=== PATIENT | female | born 1950 | race Caucasian/White ===

== ENCOUNTER → 2019-05-18 | Outpatient (CLI) | payer MEDICARE ==
[2019-05-18 18:41] LABS: ALBUMIN 4.3 GM/DL (3.2-5.2); ALT/SGPT 33 U/L (12-78); BILIRUBIN,TOTAL 0.3 MG/DL (0.2-1.0); BLOOD UREA NITROGEN 18 MG/DL (7-18); CALCIUM LEVEL 9.4 MG/DL (8.8-10.2); CARBON DIOXIDE LEVEL 26 MEQ/L (21-32); CHLORIDE LEVEL 107 MEQ/L (98-107); CREATININE FOR GFR 0.72 MG/DL (0.55-1.30); FREE T4 0.72 NG/DL (0.76-1.46); GLOMERULAR FILTRATION RATE > 60.0 (>45); GLUCOSE, FASTING 82 MG/DL (70-100); MAGNESIUM LEVEL 2.4 MG/DL (1.8-2.4); POTASSIUM SERUM 4.1 MEQ/L (3.5-5.1); SODIUM LEVEL 139 MEQ/L (136-145); TOTAL PROTEIN 7.9 GM/DL (6.4-8.2)
[2019-05-18 18:57] LABS: BASO # 0.1 10^3/uL (0.0-0.2); BASO % 0.6 % (0.0-1.0); EOS # 0.1 10^3/uL (0.0-0.50); EOS % 1.4 % (0.0-3.0); HEMATOCRIT 42.2 % (36.0-47.0); HEMOGLOBIN 13.8 g/dl (12.0-15.5); LYMPH # 2.4 10^3/uL (1.5-4.5); LYMPH % 29.9 % (24.0-44.0); MEAN CORPUSCULAR HEMOGLOBIN 30.1 pg (27.0-33.0); MEAN CORPUSCULAR HGB CONC 32.7 g/dl (32.0-36.5); MEAN CORPUSCULAR VOLUME 91.9 fl (80.0-96.0); MONO # 0.5 10^3/uL (0.0-0.8); MONO % 6.7 % (0.0-5.0); NEUTROPHILS # 4.9 10^3/uL (1.8-7.7); PLATELET COUNT, AUTOMATED 255 10^3/uL (150-450); RED BLOOD COUNT 4.59 10^6/uL (4.00-5.40); WHITE BLOOD COUNT 8.1 10^3/uL (4.0-10.0)
== END ==
LOC: M SMT 15:35
PROVIDERS: ATTEND Physician Assistant
DX: R55 Syncope and collapse (principal)

== ENCOUNTER 2019-06-16 11:56 | Day surgery (SDC) | payer MEDICARE ==
[~2019-06-16] VITALS: Ht 157.5 cm; Wt 62.6 kg
[~2019-06-16 11:56] MED LIST: LIDOCAINE 1% MDV 20ML VIAL SQ PRN; LR 1,000 ML IV ONE; [UNRECOGNIZED DRUG - CODE] PO; ceFAZolin SOD 1 GM in D5W MINI-BAG PLUS 50 ML IV ONE; thyroid support PO
[2019-06-16] MEDS ORDERED: LIDOCAINE 1% SDV INJ 30 ML VIAL As Ordered ONE (12:14)
[2019-06-16] MEDS ORDERED: ONDANSETRON 4MG/2ML VIAL (J2405) As Ordered ONE (12:47)
[2019-06-16] MEDS ORDERED: MIDAZOLAM INJ 2 MG/2 ML VIAL (J2250) As Ordered ONE (12:47)
[2019-06-16] MEDS ORDERED: LIDOCAINE 2% INJ 100 MG/5 ML SDV (FOR ANES.) As Ordered ONE (12:47)
[2019-06-16] MEDS ORDERED: fentaNYL 100 MCG/2 ML INJECTION (J3010) As Ordered ONE (12:47)
[2019-06-16] MEDS ORDERED: PROPOFOL 200 MG/20 ML VIAL As Ordered ONE ×2 (12:47→14:04)
[2019-06-16] MEDS ORDERED: ePHEDrine SULFATE 25 MG/5 ML(5MG/ML) SYRINGE As Ordered ONE (13:44)
[2019-06-16] MEDS ORDERED: KETOROLAC 60 MG/2 ML VIAL (J1885) As Ordered ONE (13:50)
[2019-06-16] MEDS ORDERED: dexameTHASONE 4 MG/ML 1ML VIAL (J1100) As Ordered ONE (14:02)
[2019-06-16] MEDS ORDERED: METOCLOPRAMIDE INJ 10MG/2ML VIAL (J2765) As Ordered ONE (14:02)
[2019-06-16 14:40] VITALS: BP 94/44
[2019-06-16] MEDS ORDERED: fentaNYL 100 MCG/2 ML INJECTION (J3010) IV PRN (14:45)
[2019-06-16] MEDS ORDERED: oxyCODONE 5MG TAB PO PRN (14:45)
[2019-06-16] MEDS ORDERED: ONDANSETRON 4MG/2ML VIAL (J2405) IV PRN (14:45)
[2019-06-16] MEDS ORDERED: LR 1,000 ML IV SCH (14:45)
--- NOTE | 2019-06-16 15:01 | RO ---
DATE OF PROCEDURE: 06/16/2019 PREOPERATIVE DIAGNOSIS: Unexplained syncope. POSTOPERATIVE DIAGNOSIS: Unexplained syncope. PROCEDURE PERFORMED: Implantation of [employer] implantable loop recorder. SURGEON: Leif Sawyer MD [employer]PARTMENT [employer] GRE[employer]ER: None. ANESTHESIA: Lidocaine 1% local/monitored anesthetic care. FINDINGS: Unexplained syncope. No specimens. Estimated blood loss than 1 mL. No blood products replaced. No drains. No complications. PROCEDURE DESCRIPTION: The patient was prepped and draped over the sternum and left anterior chest. An incision approximately 1 cm in length was made with a #15 scalpel blade through the skin approximately left 4th interspace about 1 inch lateral to the left parasternal border. The guide on the insertion tool was then placed into the incision and advanced parallel to anterior rib cage in a left lateral-caudal direction. The insertion tools were rotated 180 degrees and then the plunger was used to advance the loop recorder into the tissue. The plunger was then removed, and then insertion tool was removed leaving the loop recorder behind. A single #2-0 Vicryl suture was used to approximate the deep layers of the incision. The skin was then approximated using subcuticular stitch #4-0 Biosyn with the suture protruding from the skin 1 cm to either end of the incision. Three layers of Dermabond was applied, and then the Biosyn suture was removed by pulling it through the incision line. Patient tolerated the procedure well without any immediate complications. The implantable loop recorder implanted was a XO1 Reveal LINQ, model LNQ11 with serial #[id number]. The initial R wave amplitude was 1.08 mV.
== END 2019-06-16 15:04 | disposition home or self-care (01) ==
LOC: M SDC 11:56
PROVIDERS: ATTEND Internal Medicine Cardiovascular Disease
DX: R55 Syncope and collapse (principal); M85.80 Other specified disorders of bone density and structure, unspecified site
CPT/HCPCS: 33285; C1764; J0690; J1100; J1885; J2250; J2405; J2765; J3010

== ENCOUNTER → 2019-06-21 | Outpatient (CLI) | payer MEDICARE ==
[~2019-06-21] MED LIST changes: -LIDOCAINE 1% MDV 20ML VIAL SQ PRN; -LR 1,000 ML IV ONE; -ceFAZolin SOD 1 GM in D5W MINI-BAG PLUS 50 ML IV ONE
[2019-06-21 17:13] LABS: CHOLESTEROL RISK RATIO 4.258 (<5)
== END ==
LOC: M SMT 13:56
PROVIDERS: ATTEND Family Medicine
DX: E78.49 Other hyperlipidemia (principal)